=== PATIENT | female | born 1960 | race Two or more races ===

== ENCOUNTER 2018-12-07 20:02 | Emergency (ER) | payer MEDICAID ==
[~2018-12-07] VITALS: Ht 142.2 cm; Wt 62.6 kg
--- NOTE | 2018-12-07 20:28 | NUR ---
Pt. ambulated into ED w/ c/o cough w/ white discharge x 7 days, denies F/C/N/V/D/CP/MULLINS
[2018-12-07] MEDS ORDERED: ALBUTEROL SULFATE 2.5 MG/3 ML NEBU NEB ONE ×2 (20:45→21:15)
[2018-12-07] MEDS ORDERED: BENZONATATE 100 MG CAPSULE PO ONE (20:45)
--- NOTE | 2018-12-07 20:52 | NUR ---
Called pharmacy for Sandra bean
[2018-12-07] MEDS ORDERED: ALBUTEROL SULFATE 2.5 MG/3 ML NEBU ONE ×2 (20:57→21:27)
[2018-12-07] MEDS ORDERED: BENZONATATE 100 MG CAPSULE ONE (21:06)
[2018-12-07] MEDS ORDERED: FERR325T28 PO (21:58)
[2018-12-07] MEDS ORDERED: AMIO200T4 PO (21:58)
[2018-12-07] MEDS ORDERED: ASPI-605 PO (21:58)
[2018-12-07] MEDS ORDERED: SPIR25TA6 PO (21:58)
[2018-12-07] MEDS ORDERED: CARV25TA2 PO (21:58)
[2018-12-07] MEDS ORDERED: METF-442 PO (21:58)
[2018-12-07] MEDS ORDERED: LEVO88TA5 PO (21:58)
[2018-12-07] MEDS ORDERED: WARF3TAB59 PO (21:58)
[2018-12-07] MEDS ORDERED: FURO20TA4 PO (21:58)
[2018-12-07] MEDS ORDERED: ATOR20TA PO (21:58)
--- NOTE | 2018-12-07 22:21 | NUR ---
Patient discharged to home in stable conditon. Written and verbal after care instructions given. Patient verbalizes understanding of instructions. Pt. d/c w/ prescription per MD order, d/c papers signed, all belongings w/ pt., ID band removed, ambulated off unit w/ daughter, NAD
== END 2018-12-07 22:24 | disposition home or self-care (01) ==
LOC: ER 20:02
DX: J20.8 Acute bronchitis due to other specified organisms (principal); B97.89 Other viral agents as the cause of diseases classified elsewhere; I25.2 Old myocardial infarction; I48.91 Unspecified atrial fibrillation; Z79.82 Long term (current) use of aspirin; Z79.01 Long term (current) use of anticoagulants; Z79.899 Other long term (current) drug therapy; Z95.0 Presence of cardiac pacemaker
CPT/HCPCS: A4663

== ENCOUNTER 2018-12-18 22:22 | Emergency (ER) | payer MEDICAID ==
[~2018-12-18] VITALS: Ht 144.8 cm; Wt 62.1 kg
[~2018-12-18 22:22] MED LIST: AMIO200T4 PO; ASPI-605 PO; ATOR20TA PO; CARV25TA2 PO; FERR325T28 PO; FURO20TA4 PO; LEVO88TA5 PO; METF-442 PO; SPIR25TA6 PO; WARF3TAB59 PO
--- NOTE | 2018-12-18 22:54 | NUR ---
Patient ambulated with stable gait. Patients relative at bedside for interpretation. Patient AAOX4. Speech clear, speaks in complete sentences. No neuro deficits. Patient came in for c/o bloody nose at 1900 in [facility]. Bled for about 2 minutes. Patient currently on Coumadin and Aspirin. Respiratory even and unlabored. No cardiovascular distress noted, all pulses palpable. No GI/ distress. patient in bed at lowest setting, side rails upx2, call light within reach. Fall precautions implemented per protocol.
[2018-12-18 23:19] LABS: BASOPHILS % (AUTO) 0.7 % (0.0-2.0); EOSINOPHILS # (AUTO) 0.3 K/uL (0.0-0.7); EOSINOPHILS % (AUTO) 5.2 % (0.0-7.0); HEMATOCRIT 35.8 % (31.2-41.9); HEMOGLOBIN 11.4 g/dL (10.9-14.3); LYMPHOCYTES # (AUTO) 1.1 K/uL (20.0-40.0); LYMPHOCYTES % (AUTO) 17.8 % (20.5-51.5); MEAN CORPUSCULAR HGB CONC 32 g/dL (32.3-35.6); MEAN CORPUSCULAR VOLUME 72.2 fL (75.5-95.3); MONOCYTES # (AUTO) 0.4 K/uL (2.0-10.0); MONOCYTES % (AUTO) 6.1 % (0.0-11.0); NEUTROPHILS # (AUTO) 4.5 K/uL (1.8-8.9); NEUTROPHILS % (AUTO) 70.2 % (38.5-71.5); PLATELET COUNT (AUTO) 189 K/uL (179-408); RED BLOOD CELL COUNT(AUTO) 4.97 MIL/uL (3.63-4.92); WHITE BLOOD COUNT (AUTO) 6.4 K/uL (3.8-11.8)
--- NOTE | 2018-12-19 00:01 | NUR ---
Patient discharged to home in stable conditon. Written and verbal after care instructions given. Patient verbalizes understanding of instructions. ALL BELONGINGS W/ PT. PT SELF-AMBULATED W/O DIFFICULTY.
[2018-12-19 00:04] VITALS: BP 126/77
== END 2018-12-19 00:04 | disposition home or self-care (01) ==
LOC: ER 22:22
DX: R04.0 Epistaxis (principal); I10 Essential (primary) hypertension; E11.9 Type 2 diabetes mellitus without complications; E03.9 Hypothyroidism, unspecified; I25.10 Atherosclerotic heart disease of native coronary artery without angina pectoris; I48.91 Unspecified atrial fibrillation; I25.2 Old myocardial infarction; Z95.0 Presence of cardiac pacemaker; Z88.8 Allergy status to other drugs, medicaments and biological substances; Z79.82 Long term (current) use of aspirin; Z79.899 Other long term (current) drug therapy; Z79.01 Long term (current) use of anticoagulants
CPT/HCPCS: 36415; 85025; 85730; A4663

== ENCOUNTER 2019-01-07 21:27 | Emergency (ER) | payer MEDICAID ==
[~2019-01-07] VITALS: Ht 154.9 cm; Wt 63.5 kg
--- NOTE | 2019-01-07 21:45 | NUR ---
Dr. Carver at bedside for MSE.
--- NOTE | 2019-01-07 21:50 | NUR ---
Xray at bedside.
--- NOTE | 2019-01-07 22:12 | NUR ---
Patient discharged to home in stable conditon. Written and verbal after care instructions given. Patient verbalizes understanding of instructions. Pt ambulated out of ER with steady gait, no acute signs of distress, VSS, all belongings taken.
[2019-01-07 22:13] VITALS: BP 137/70
== END 2019-01-07 22:13 | disposition home or self-care (01) ==
LOC: ER 21:29
DX: J06.9 Acute upper respiratory infection, unspecified (principal); I25.2 Old myocardial infarction; Z88.8 Allergy status to other drugs, medicaments and biological substances; Z79.01 Long term (current) use of anticoagulants; Z79.82 Long term (current) use of aspirin; Z79.899 Other long term (current) drug therapy; Z95.0 Presence of cardiac pacemaker
CPT/HCPCS: 71045; 93005; A4663

== ENCOUNTER 2020-05-12 12:07 | Emergency (ER) | payer MEDICAID, OTHER ==
[~2020-05-12] VITALS: Ht 152.4 cm; Wt 68.9 kg
[~2020-05-12 12:07] MED LIST changes: -METF-442 PO
--- NOTE | 2020-05-12 12:31 | NUR ---
Dr. Barboza at bedside for MSE
[2020-05-12] MEDS ORDERED: OXYCODONE HCL 5 MG TABLET PO ONE (12:45)
[2020-05-12] MEDS ORDERED: OXYCODONE HCL 5 MG TABLET ONE (12:53)
[2020-05-12 13:01] LABS: BASOPHILS % (AUTO) 0.5 % (0.0-2.0); EOSINOPHILS # (AUTO) 0.1 K/uL (0.0-0.7); HEMATOCRIT 35.9 % (31.2-41.9); LYMPHOCYTES # (AUTO) 0.7 K/uL (20.0-40.0); LYMPHOCYTES % (AUTO) 13.6 % (20.5-51.5); MEAN CORPUSCULAR HEMOGLOBIN 31.2 uug (24.7-32.8); MEAN CORPUSCULAR HGB CONC 33 g/dL (32.3-35.6); MEAN CORPUSCULAR VOLUME 93.3 fL (75.5-95.3); MONOCYTES # (AUTO) 0.3 K/uL (2.0-10.0); MONOCYTES % (AUTO) 6.1 % (0.0-11.0); NEUTROPHILS % (AUTO) 77.8 % (38.5-71.5); PLATELET COUNT (AUTO) 185 K/uL (179-408); RED BLOOD CELL COUNT(AUTO) 3.85 MIL/uL (3.63-4.92); WHITE BLOOD COUNT (AUTO) 5.1 K/uL (3.8-11.8)
[2020-05-12 13:20] LABS: BILIRUBIN,DIRECT 0.2 mg/dL (0.0-0.2); BILIRUBIN,TOTAL 0.5 mg/dL (0.2-1.0); CREATININE 1.4 mg/dL (0.6-1.3); POTASSIUM 4.7 mmol/L (3.5-5.1); TOTAL PROTEIN, SERUM 7.5 g/dL (6.4-8.2)
--- NOTE | 2020-05-12 14:15 | NUR ---
Patient discharged to home in stable condition. Written and verbal after care instructions given. Patient verbalizes understanding of instructions. Stressed follow up or return to ER for worsening s/s. Patient ambulated with steady gait. Denies any nausea. NAD noted.
[2020-05-12 14:23] VITALS: BP 118/63
== END 2020-05-12 14:15 | disposition home or self-care (01) ==
LOC: ER 12:07
DX: R07.81 Pleurodynia (principal); S80.11XA Contusion of right lower leg, initial encounter; X58.XXXA Exposure to other specified factors, initial encounter; Y92.89 Other specified places as the place of occurrence of the external cause; Z79.01 Long term (current) use of anticoagulants; I48.91 Unspecified atrial fibrillation; I25.2 Old myocardial infarction; I50.9 Heart failure, unspecified; Z79.899 Other long term (current) drug therapy; Z95.0 Presence of cardiac pacemaker; I25.10 Atherosclerotic heart disease of native coronary artery without angina pectoris; Z86.73 Personal history of transient ischemic attack (TIA), and cerebral infarction without residual deficits; R94.4 Abnormal results of kidney function studies
CPT/HCPCS: 36415; 70030-TC; 71101; 85025; 85730; 93005; A4663

== ENCOUNTER 2021-04-16 11:34 | Emergency (ER) | payer MEDICAID, OTHER ==
[~2021-04-16] VITALS: Ht 152.4 cm; Wt 68.9 kg
[~2021-04-16 11:34] MED LIST changes: -AMIO200T4 PO; +AMIO200T5 PO
[2021-04-16] MEDS ORDERED: SILVER SULFADIAZINE 1% CREAM 50 GM TP ONE (13:30)
[2021-04-16 14:05] LABS: HEMATOCRIT 35.9 % (31.2-41.9); MEAN CORPUSCULAR HEMOGLOBIN 30.2 uug (24.7-32.8); MEAN CORPUSCULAR VOLUME 91.4 fL (75.5-95.3); PLATELET COUNT (AUTO) 131 K/uL (179-408)
[2021-04-16] MEDS ORDERED: SILVER SULFADIAZINE 1% CREAM 25 GM TUBE TP ONE (14:09)
[2021-04-16 14:12] LABS: CREATININE 1.2 mg/dL (0.6-1.3); POTASSIUM 5.5 mmol/L (3.5-5.1)
[2021-04-16] MEDS ORDERED: SILV50CR32 TP (15:05)
--- NOTE | 2021-04-16 15:18 | NUR ---
Patient discharged to home in stable condition. Written and verbal after care instructions given. Patient verbalizes understanding of instructions. Stressed follow up or return to ER for worsening s/s.
== END 2021-04-16 15:18 | disposition home or self-care (01) ==
LOC: ER 11:34
DX: I83.212 Varicose veins of right lower extremity with both ulcer of calf and inflammation (principal); L97.211 Non-pressure chronic ulcer of right calf limited to breakdown of skin; I25.2 Old myocardial infarction; I48.91 Unspecified atrial fibrillation; Z79.01 Long term (current) use of anticoagulants; Z95.0 Presence of cardiac pacemaker; Z86.73 Personal history of transient ischemic attack (TIA), and cerebral infarction without residual deficits
CPT/HCPCS: 36415; 70030-TC; 73590; 85025; 85610; 85730; 93005; A4217; A4663